=== PATIENT | female | born 1940 | race Caucasian/White ===

== ENCOUNTER → 2016-09-09 | Outpatient (CLI) | payer MEDICARE ==
--- NOTE | 2016-09-09 15:35 | KCIC ---
MRI right shoulder without contrast dated 09/09/2016. No comparison available. CLINICAL INDICATION: Shoulder pain. History of prior surgery. TECHNIQUE: Routine multiplanar multisequence MR imaging right shoulder performed. FINDINGS: Evidence of prior subacromial decompression and rotator cuff repair. Intermediate T2 signal and thinning of the repaired cuff with ill-definition of the anterior supraspinatus footplate. No significant cuff retraction. The cuff is thinned by about 80-90 percent at the anterior footplate. There is also probable high-grade partial tearing of the subscapularis, without significant cuff retraction. The long head biceps tendon is not identified and likely chronically torn at the biceps anchor. Extra articular portion is also not well seen. Mild hypertrophic changes of the acromial clavicular joint. Small amount of subacromial/subdeltoid bursal fluid. Acromion type I morphology. Mild hypertrophic change at the glenohumeral joint with thinning and surface irregularity of the glenoid articular cartilage. Blunted morphology of the posterior labrum and anterior inferior labrum. No perilabral cyst. No significant joint effusion or loose body. IMPRESSION: 1. Status post subacromial decompression and rotator cuff repair. Tendinosis and thinning of the repaired cuff throughout. The anterior supraspinatus footplate and upper margin of subscapularis are ill-defined which could represent recurrent full-thickness tear, high-grade partial-thickness tearing or postsurgical defect. No significant cuff retraction. 2. Nonvisualization of the long head biceps tendon, likely chronically torn. 3. 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 Degenerative fraying of the posterior superior labrum. Electronically signed by: Kei Stein MD (09/09/2016 3:31 PM)
--- NOTE | 2016-09-09 15:41 | KCIC ---
MRI left shoulder without contrast dated 09/09/2016. No comparison available. CLINICAL INDICATION: Shoulder pain and limited range of motion. TECHNIQUE: Routine multiplanar multisequence MR imaging performed. FINDINGS: Evidence of prior subacromial decompression and rotator cuff repair. There is been resection of the distal clavicle. Intermediate T2 signal throughout the supraspinatus and infraspinatus portions of the rotator cuff with particular surface and undersurface partial tearing of the supraspinatus and infraspinatus. No definite full thickness tear or cuff retraction. Subscapularis is grossly intact. Long head biceps tendon is not identified proximally and likely chronically torn. There is evidence of prior biceps tenodesis. The distal biceps tendon is not well-visualized. Mild hypertrophic change of the glenohumeral joint with glenoid chondromalacia. Small joint effusion with heterogeneous debris at the inferior joint space. Blunted morphology of the anterior and posterior labrum. Suprascapular and spinoglenoid notches are clear. No significant muscle edema. There is diffuse fatty atrophy of the rotator cuff musculature. No bone marrow edema. IMPRESSION: 1. Status post subacromial decompression and rotator cuff repair. There is tendinosis and thinning of the repaired cuff with no definite recurrent full-thickness defect. 2. 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 The extra-articular biceps tendon is not well visualized. 3. Mild degenerative change and chondromalacia of the glenohumeral joint. There is degenerative tearing of the anterior and posterior labrum. Electronically signed by: Kei Stein MD (09/09/2016 3:36 PM)
== END | disposition home or self-care (01) ==
LOC: KCIC MRI 13:28
PROVIDERS: ATTEND Orthopaedic Surgery Sports Medicine
DX: M25.511 Pain in right shoulder (principal); M25.512 Pain in left shoulder
CPT/HCPCS: 73221

== ENCOUNTER → 2019-03-31 | Outpatient (CLI) | payer MEDICARE ==
--- NOTE | 2019-03-31 15:57 | CARD ---
MR#: [id number] Date of Study: 03/31/2019 Ordering Physician: ABBY NAPIER, Referring Physician: ABBY NAPIER, Tech: Wanda Paulson APPROVED REPORT EXAM: Two-dimensional and M-mode echocardiogram with Doppler and color Doppler. Other Information Quality : AverageHR: 78bpm INDICATION Murmur RISK FACTORS Hypertension Diabetes 2D DIMENSIONS RVDd3.1 (2.9-3.5cm)Left Atrium(2D)2.7 (1.6-4.0cm) IVSd1.1 (0.7-1.1cm)Aortic Root(2D)2.7 (2.0-3.7cm) LVDd3.7 (3.9-5.9cm)LVOT Diameter1.8 (1.8-2.4cm) PWd0.9 (0.7-1.1cm)LVDs2.8 (2.5-4.0cm) FS (%) 23.7 %SV28.6 ml Aortic Valve AoV Peak Marcio.216.5cm/sAoV VTI39.7cm AO Peak GR.18.7mmHgLVOT Peak Marcio.132.7cm/s LVOT VTI 24.52cmAO Mean GR.10mmHg HAYDE (VMAX)1.14gp2NUJ (VTI)1.52cm2 Mitral Valve MV E Ezlzynlf43.2cm/sMV DECEL [id number] MV A Oqwoapet16.2cm/sMV MMX16ap E/A Ratio1.0MVA (PHT)3.71cm2 TDI E/Lateral E'12.5E/Medial E'13.9 Pulmonary Valve PV Peak Iofqejee578.2cm/sPV Peak Grad.5mmHg Tricuspid Valve TR P. Mqxfmkih752pd/sRAP [id number] TR Peak Gr.63kgUdZANW03mdPs Pulmonary Vein S1 Uvrwdpch07.2cm/sD2 Whjmnwql31.6cm/s PVa [id number] LEFT VENTRICLE The left ventricle is normal size. There is borderline to mild concentric left ventricular hypertroph y. The left ventricular systolic function is normal and the ejection fraction is within normal range. The Ejection Fraction is 55-60%. There is normal LV segmental wall motion. Transmitral Doppler flow pattern is Grade II-pseudonormal filling dynamics. RIGHT VENTRICLE The right ventricle is normal size. There is normal right ventricular wall thickness. The right ventr icular systolic function is normal. ATRIA The left atrium size is normal. The right atrium size is normal. The interatrial septum is intact wit h no evidence for an atrial septal defect or patent foramen ovale as noted on 2-D or Doppler imaging. AORTIC VALVE The aortic valve is calcified and displays decreased opening. Doppler and Color Flow revealed trace a ortic regurgitation. There is no significant aortic valvular stenosis. MITRAL VALVE The mitral valve is normal in structure and function. There is no evidence of mitral valve prolapse. There is no mitral valve stenosis. Doppler and Color-flow revealed trace mitral regurgitation. TRICUSPID VALVE The tricuspid valve is normal in structure and function. Doppler and Color Flow revealed trace to mil d tricuspid regurgitation with an estimated PAP of 39 mmHg. There is no tricuspid valve prolapse or v egetation. There is no tricuspid valve stenosis. PULMONIC VALVE The pulmonic valve is not well visualized. Doppler and Color Flow revealed no pulmonic valvular regur gitation. GREAT VESSELS The aortic root is normal in size. The IVC is normal in size and collapses >50% with inspiration. PERICARDIAL EFFUSION There is no evidence of significant pericardial effusion. Critical Notification Critical Value: No <Conclusion> The left ventricle is normal size. The left ventricular systolic function is normal and the ejection fraction is within normal range. The Ejection Fraction is 55-60%. There is borderline to mild concentric left ventricular hypertrophy. Doppler and Color Flow revealed trace aortic regurgitation. There is no significant aortic valvular stenosis. Doppler and Color-flow revealed trace mitral regurgitation. Doppler and Color Flow revealed trace to mild tricuspid regurgitation with an estimated PAP of 39 mmH g. Signed by : Davey Palomares MD Electronically Approved : 03/31/2019 15:56:44
== END | disposition home or self-care (01) ==
LOC: ECHO 13:20
PROVIDERS: ATTEND Family Medicine
DX: I08.2 Rheumatic disorders of both aortic and tricuspid valves (principal); I10 Essential (primary) hypertension; E11.9 Type 2 diabetes mellitus without complications
CPT/HCPCS: 93306